=== PATIENT | male | born 1960 | race Caucasian/White ===

== ENCOUNTER 2019-03-14 11:25 | Emergency (ER) | payer MEDICAID ==
[~2019-03-14] VITALS: Ht 162.6 cm; Wt 59.0 kg
[2019-03-14] MEDS ORDERED: CAFF200T4 PO (11:34)
[2019-03-14] MEDS ORDERED: HYDROCODONE PO (11:34)
[2019-03-14] MEDS ORDERED: IBUP-1506 PO (11:34)
[2019-03-14] MEDS ORDERED: DiphenhydrAMINE HCL 25 MG CAPSULE PO ONE (12:45)
[2019-03-14] MEDS ORDERED: HYDROCORTISONE 1% 120 ML LOTION TP ONE (12:45)
[2019-03-14] MEDS ORDERED: CEPHALEXIN MONOHYDRATE 500 MG CAPSULE PO ONE (12:45)
[2019-03-14 14:06] VITALS: BP 145/81
== END 2019-03-14 14:11 | disposition home or self-care (01) ==
LOC: EMS 11:25
DX: L20.9 Atopic dermatitis, unspecified (principal); F12.90 Cannabis use, unspecified, uncomplicated; F17.210 Nicotine dependence, cigarettes, uncomplicated; Z88.6 Allergy status to analgesic agent

== ENCOUNTER 2025-03-25 18:46 | Emergency (ER) | payer MEDICAID ==
[~2025-03-25] VITALS: Ht 162.6 cm; Wt 48.0 kg
[2025-03-25 19:07] VITALS: TEMP 97.6
[2025-03-25 20:09] LABS: PLATELET COUNT (AUTO) 339 K/uL (150-450); RED BLOOD CELL COUNT(AUTO) 5.41 MIL/uL (4.50-5.90); RED CELL DISTRIBUTION WIDTH 16.7 % (11.5-14.5); WHITE BLOOD COUNT (AUTO) 7.4 K/uL (4.5-11.0)
[2025-03-25 20:13] LABS: CALCIUM, TOTAL 8.7 mg/dL (8.8-10.5); CREATININE 1.34 mg/dL (0.60-1.30); GLOMERULAR FILTR. RATE CALC 54 mL/min (>60); GLUCOSE,RANDOM 96 mg/dL (70-110); SODIUM SERUM 142 mmol/L (136-145); UREA NITROGEN, BLOOD 25 mg/dL (7-18)
[2025-03-25 20:22] LABS: TROPONIN I-HIGH SENSITIVITY 12 ng/L (<76)
[2025-03-25] MEDS: ONDANSETRON 4 MG TABLET PO ONE (20:37)
[2025-03-25] MEDS: POTASSIUM CHLORIDE 20 MEQ ER TABLET PO ONE (20:37)
[2025-03-25 23:10] LABS: APPEARANCE,URINE CLEAR (CLEAR); GLUCOSE, URINE (UA) 70-100 mg/dL (NEGATIVE); LEUKOCYTE ESTERASE ,URINE TRACE (NEGATIVE); NITRATE,URINE NEGATIVE (NEGATIVE); OCCULT BLOOD,URINE NEGATIVE (NEGATIVE); PH,URINE DRUG SCREEN 5.5 (5.0-8.0); SPECIFIC GRAVITIY, URINE 1.017 (1.003-1.030)
[2025-03-25 23:17] LABS: ALCOHOL, URINE DRUG SCREEN NEGATIVE (NEGATIVE); AMPHET/METH SCREEN,URINE POSITIVE (NEGATIVE); BARBITURATE SCREEN, URINE NEGATIVE (NEGATIVE); CANNABINOID SCREEN,URINE NEGATIVE (NEGATIVE); COCAINE SCREEN,URINE NEGATIVE (NEGATIVE); METHADONE SCREEN, URINE NEGATIVE (NEGATIVE)
[2025-03-25 23:28] LABS: SQUAMOUS EPITHELIAL CELL,UR Rare /LPF (None Seen)
[2025-03-26] MEDS: POTASSIUM CHLORIDE 20 MEQ ER TABLET PO ONE (00:42)
[2025-03-26 03:15] VITALS: BP 164/88; PULSE 75; RESP 16; O2SAT 97
== END 2025-03-26 04:43 | disposition home or self-care (01) ==
LOC: EMS 18:46
DX: F15.10 Other stimulant abuse, uncomplicated (principal); F11.90 Opioid use, unspecified, uncomplicated; F12.90 Cannabis use, unspecified, uncomplicated; F17.210 Nicotine dependence, cigarettes, uncomplicated; Z90.49 Acquired absence of other specified parts of digestive tract; Z91.041 Radiographic dye allergy status; Z88.0 Allergy status to penicillin; Z87.442 Personal history of urinary calculi
CPT/HCPCS: 99285; 71045; 80048; 81001; 84484; 85025; 87086; 36415; 93005; 80307; Q0162